=== PATIENT | female | born 1960 | race Caucasian/White ===

== ENCOUNTER 2016-12-25 02:04 | Inpatient (IN) ==
--- NOTE | 2016-12-25 02:26 | Emergency Department Note ---
Disposition Clinical Impression: Medication reaction Pneumonia Qualifiers: Pneumonia type: due to unspecified organism Laterality: bilateral Lung location : unspecified part of lung Qualified Code(s): J18.9 - Pneumonia, unspecified organism Altered mental status Qualifiers: Altered mental status type: unspecified Qualified Code(s): R41.82 - Altered mental status, unspecified Disposition: Admitted As Inpatient Condition: Good Time of Disposition: 04:28 General Adult HPI - General Chief complaint: ED Fall Stated complaint: fall Time Seen by Provider: 12/25/16 02:11 Source: patient, EMS Limitations: no limitations Nursing Notes Reviewed: Yes Vital Signs Reviewed: Yes - History of Present Illness HPI Narrative: Pt brought in by EMS. She states that she has been like she was asleep but still doing things. She states that she went from the bathroom and stood in front of her dresser to change her clothes. She then was in the floor. She states that she was having pain to the back of her head. She has a c-collar on from her recent neck surgery. She complains of into the left side of her neck. This tenderness is not midline. Pain Scale: 7 - Related Data Allergies Allergy/AdvReac Type Severity Reaction Status Date / Time codeine Allergy Itching Verified 11/09/16 13:24 Oxycodone [From Percocet] Allergy Hives Verified 12/25/16 04:33 sertraline [From Zoloft] Allergy Itching Verified 11/09/16 13:24 All systems ED: reviewed and negative except as stated. Constitutional: Denies: fever, chills ENT ED: Denies: ear pain, throat pain, congestion, dysphagia Cardiovascular: Reports: syncope (One episode today while standing in her dresser putting her night gown on.). Denies: chest pain, palpitations, edema Respiratory: Denies: cough, dyspnea, wheezes Gastrointestinal: Denies: abdominal pain, nausea, vomiting, diarrhea, hematemesis, melena, hematochezia Genitourinary: Denies: urgency, dysuria, frequency Musculoskeletal: Reports: neck pain (Left-sided). Denies: back pain Integumentary: Denies: rash, abrasion, lesions Neurological: Reports: headache, other (One day history of feeling like she is asleep but still doing things.). Denies: weakness, numbness Past Medical History - Past Medical History Attestation: Yes The following information was validated with the patient. Medical history: Reports: arthritis, asthma, COPD, hyperlipidemia, hypertension , TIA Psychiatric history: Reports: anxiety, bipolar, depression - Social History Smoking Status: Former smoker Smokeless Tobacco Status: No Alcohol use: Reports: rarely Drug use: Reports: none Physical Exam - General Limitations: no limitations General appearance: alert, in no apparent distress - Head Head exam: atraumatic, normocephalic, normal inspection - Eye Eye exam: Present: normal appearance, PERRL, EOMI. Absent: scleral icterus - ENT ENT exam: normal exam, normal oropharynx, mucous membranes moist - Neck Neck exam: Present: normal inspection, full ROM, trachea midline, other (Left- sided neck pain. Occurred after her fall. No midline tenderness.) - Chest Chest inspection: Present: normal inspection, symmetric chest wall rise. Absent : tenderness, rash - Respiratory Respiratory exam: Present: normal lung sounds bilaterally. Absent: respiratory distress - Cardiovascular Cardiovascular exam: Present: regular rate, normal rhythm, normal heart sounds - Abdominal Exam Abdominal exam: Present: soft, Non-Tender. Absent: tenderness, distention, guarding, rebound, rigidity, organomegaly - Extremities Exam Extremities exam: Present: normal inspection, full ROM, normal capillary refill. Absent: tenderness, pedal edema - Back Exam Back exam: Present: normal inspection, full ROM. Absent: tenderness, CVA tenderness (R), CVA tenderness (L) - Neurological Exam Neurological exam: Present: alert, oriented X3, other (Somewhat confused. She said her speech is slow. Appears overmedicated.). Absent: motor sensory deficit - Psychiatric Psychiatric exam: Present: normal affect, normal mood - Skin Skin exam: Present: warm, dry, intact, normal color Course Course Narrative: Female patient with the recent neck surgery who is in a c-collar since the surgery was standing on her dresser tonight and fell backwards and struck her head. She is now complaining of posterior neck pain that is off to the left side. There is no midline tenderness. She is also complaining of pain to the back of her head. Her head is normocephalic atraumatic. I do not appreciated any lacerations or abrasions. There are no hematomas. Patient states that today she has been feeling like she was doing things while she was asleep. She does appear tired while she is here. Her speech is slowed. Her pupils are reactive to light and equal. He has full range of motion of all 4 extremities. She is neurovascularly intact. We will get basic lab work and the patient's head. We will also CT patient's C-spine. We will get an EKG and a glucose. - Reevaluation(s) Reevaluation #1: Patient's states that the patient surgeon just increase her gabapentin. He reports last time she was on gabapentin that she had hallucinations. This is consistent with her saying that she feels like she is asleep but she still doing things. He also reports that the patient has been on high-dose steroids since the last time she was here. This would explain the reason for elevated white blood cell count. Time: 03:29 Reevaluation #2: Patient has pneumonia. I discussed this with her begin antibiotic treatment. She is agreeable to stay. She still appears somewhat Sedated. There may be a component of overmedication. Time: 04:25 - Consultations Consultation #1: Dr Arellano accepted Pt in stable condition Time: 04:55 Vital Signs Temperature 98.7 F 12/25/16 02:09 Pulse Rate 93 12/25/16 02:09 Respiratory Rate 20 12/25/16 02:09 Blood Pressure 140/85 12/25/16 02:09 O2 Sat by Pulse Oximetry 93 L 12/25/16 02:09 Temperature 99.6 F 12/25/16 06:43 Pulse Rate 97 12/25/16 06:43 Respiratory Rate 18 12/25/16 06:43 Blood Pressure 161/109 12/25/16 06:43 O2 Sat by Pulse Oximetry 93 L 12/25/16 06:43 Oxygen Delivery Oxygen Delivery Nasal Cannula Medical Decision Making - Medical Records Medical records reviewed: Yes I reviewed the patient's medical records. - Lab Data Lab results reviewed: Yes I reviewed the patient's lab results. Result diagrams: 12/25/16 02:51 12/25/16 02:51 Lab Results 12/25/16 12/25/16 Range/Units 02:51 02:51 WBC 27.7 H (4.3-11.1) K/mcL RBC 3.78 L (3.82-4.97) M/mcL Hgb 10.1 L (11.5-15.4) g/dL Hct 31.4 L (35.3-44.9) % MCV 83.1 (83.0-100.0) fL MCH 26.7 L (28.0-33.3) pg MCHC 32.2 (31.6-35.5) g/dL RDW 14.0 (11.5-14.5) % Plt Count 628 H (140-400) K/mcL MPV 7.7 L (9.4-12.4) fL Seg Neutrophils % 88.0 % Band Neutrophils % 4.0 (0-4) % Lymphocytes % 2.0 % Monocytes % 6.0 % Neutrophils # 25.5 H (1.6-8.9) K/mcL Lymphocytes # 0.6 (0.6-4.6) K/mcL Monocytes # 1.7 H (0.0-1.3) K/mcL Platelet Estimate Marked Increase H (Normal) Immature Plt Fraction 0.9 L (1.1-6.1) % Sodium 132 L (136-145) mEq/L Potassium 3.8 (3.5-4.5) mEq/L Chloride 99 (98-109) mEq/L Carbon Dioxide 25 (19-29) mEq/L BUN 9 (7-20) mg/dL Creatinine 0.66 (0.57-1.11) mg/dL Est GFR ( Amer) > 60 (> 60) Est GFR (Non-Af Amer) > 60 (> 60) BUN/Creatinine Ratio 14 (6-26) Glucose 110 H (70-99) mg/dL Calculated Osmolality 273 L (280-300) Calcium 8.5 L (8.6-10.8) mg/dL Total Bilirubin 0.5 (0.2-1.2) mg/dL AST 26 (5-34) Units/L ALT 39 (0-55) Units/L Alkaline Phosphatase 133 H (38-126) Units/L Serum Total Protein 6.3 (6.0-8.3) g/dL Albumin 2.3 L (3.5-5.0) g/dL Globulin 4.0 H (2.4-3.5) g/dL Albumin/Globulin Ratio 0.6 L (1.1-2.2) - Radiology Data Radiology results reviewed: Yes I reviewed the patient's radiology results. Cervical Spine CT 12/25/16 02:16 IMPRESSION: No acute abnormality of the cervical spine. Postoperative changes of attempted fusion from C3-C7, with laminectomies from C3-C6. Sagittal alignment is maintained. Bilateral upper lobe opacities, left greater than right, concerning for pneumonia. D/ / Brent Taylor MD / Brent Taylor MD Interpreting Provider: Brent Taylor MD Head CT 12/25/16 02:16 IMPRESSION: No acute intracranial abnormality. D/ / Brent Taylor MD / Brent Taylor MD Interpreting Provider: Brent Taylor MD Chest X-Ray 12/25/16 03:28 IMPRESSION: Diffuse airspace disease could represent pulmonary edema or pneumonia. D/ / Feng Hernandez MD / Feng Hernandez MD Interpreting Provider: Feng Hernandez MD - EKG Data EKG #1 EKG attestation: Yes I reviewed and interpreted this EKG. EKG results narrative: Normal sinus rhythm at a rate 88. CA interval is 108. QRS duration is 94. QT is 342. QTc is 387. No signs of acute ischemia.
[2016-12-25 02:58] LABS: Hematocrit 31.4 % (35.3-44.9); Hemoglobin 10.1 g/dL (11.5-15.4); Immature Platelets 0.9 % (1.1-6.1); Mean Corpuscular HGB Conc 32.2 g/dL (31.6-35.5); Mean Corpuscular Hemoglobin 26.7 pg (28.0-33.3); Mean Corpuscular Volume 83.1 fL (83.0-100.0); Mean Platelet Volume 7.7 fL (9.4-12.4); Platelet Count 628 K/mcL (140-400); Red Blood Count 3.78 M/mcL (3.82-4.97)
[2016-12-25 03:11] LABS: Alanine Aminotransferase 39 Units/L (0-55); Albumin 2.3 g/dL (3.5-5.0); Albumin/Globulin Ratio 0.6 (1.1-2.2); Alkaline Phosphatase 133 Units/L (38-126); Aspartate Amino Transferase 26 Units/L (5-34); BUN/Creatinine Ratio 14 (6-26); Bilirubin,Total 0.5 mg/dL (0.2-1.2); Blood Urea Nitrogen 9 mg/dL (7-20); Calcium 8.5 mg/dL (8.6-10.8); Carbon Dioxide 25 mEq/L (19-29); Chloride 99 mEq/L (98-109); Glucose 110 mg/dL (70-99); Osmolality,Calculated 273 (280-300); Potassium 3.8 mEq/L (3.5-4.5); Sodium 132 mEq/L (136-145); Total Protein 6.3 g/dL (6.0-8.3); eGFR For African Americans > 60 (> 60); eGFR For Non-African Americans > 60 (> 60)
--- NOTE | 2016-12-25 03:27 | Emergency Department Note ---
START Narrative - START START: For this encounter, I have reviewed the resident, GRILL CHEF, or PA documentation, treatment plan, and medical decision making; and I have had face to face time with this patient. 56 yo female presents after a fall. At a rehab facility after a cervical spine fusion. Unable to recall why she fell. States she was changing into her gown, fell with LOC. Reports she is fatigued throughout the day over the past 48 hours. Complains of pain to the neck and posterior head. No anticoagulation use. states that the patient has been increasingly fatigued after starting new dose of gabapentin. states that the patient has had similar symptoms the last time she took gabapentin. Patient has a leukocytosis and has a infiltrate on chest x-ray. We will treat the patient with healthcare associated antibiotics and admitted for care and evaluation.
[2016-12-25 03:43] LABS: Lymphocytes # 0.6 K/mcL (0.6-4.6); Monocytes # 1.7 K/mcL (0.0-1.3); Neutrophils # 25.5 K/mcL (1.6-8.9); Platelet Estimate Marked Increase (Normal)
[2016-12-25] MEDS ORDERED: Levofloxacin 750 MG/150 ML 750 MG/150 ML BAG IVPB ONE (04:08)
[2016-12-25] MEDS ORDERED: Vancomycin 1,250 MG in D5% in Water 250 ML IVPB ONE (04:08)
[2016-12-25] MEDS ORDERED: Piperacillin/Tazobactam 3.375 GM in D5% in Water (Mini-Bag+) 100 ML IVPB ONE (04:08)
--- NOTE | 2016-12-25 05:34 | Internal Med History&Physical ---
Date of Encounter: 12/25/16 Time of Encounter: 05:32 Internal Medicine - H&P: HPI Chief complaint: fall Admitted From: Home Plans for Post Hospital Care: Home History of present illness: Ms. Clayton is a 56 year old female who presents to the ED after sustaining a fall at home. She states she was at the bathroom about to change when she lost consciousness. She apparently fell backwards and hit her head and has pain in her neck as well. She recently had neck surgery last month at [facility] for repeat spinal fusion and currently has a c-collar on. She reports feeling sleepy all day and believes her Gabapentin is contributing to it. Past Med Surg Social Fam HX - Past Medical History Medical history: arthritis, asthma, COPD, hyperlipidemia, hypertension, TIA Psychiatric history: anxiety, bipolar, depression - Social History Smoking Status: Former smoker Smokeless Tobacco Status: No Alcohol use: rarely Drug use: none Internal Medicine - H&P: Meds Allergies codeine Allergy (Verified 11/09/16 13:24) Itching Oxycodone [From Percocet] Allergy (Verified 12/25/16 04:33) Hives sertraline [From Zoloft] Allergy (Verified 11/09/16 13:24) Itching All Systems PM: A 10-system review of systems was performed and is negative for pertinent findings except as documented above in the HPI. - Constitutional Vitals: Temp Pulse Resp BP Pulse Ox 98.7 F 92 20 122/64 92 L 12/25/16 02:09 12/25/16 04:50 12/25/16 04:50 12/25/16 04:50 12/25/16 04:50 Internal Med - H&P Results - Labs CBC & Chem 7: 12/25/16 02:51 12/25/16 02:51
[2016-12-25] MEDS ORDERED: Ondansetron 4 MG/2 ML VIAL IVP PRN (08:48)
[2016-12-25] MEDS ORDERED: Acetaminophen 325 MG TABLET PO PRN (08:48)
[2016-12-25] MEDS ORDERED: Naloxone 0.4 MG/ML INJ IVP PRN (08:48)
[2016-12-25] MEDS ORDERED: *HR* Morphine 2 MG/ML SYRINGE IVP PRN (08:48)
[2016-12-25] MEDS ORDERED: Vancomycin (wt based) 1,000 MG VIAL IVPB SCH (09:00)
[2016-12-25 10:16] LABS: Hematocrit 32.1 % (35.3-44.9); Hemoglobin 10.6 g/dL (11.5-15.4); Immature Platelets 1.2 % (1.1-6.1); Mean Corpuscular Hemoglobin 27.4 pg (28.0-33.3); Mean Corpuscular Volume 82.9 fL (83.0-100.0); Mean Platelet Volume 8.2 fL (9.4-12.4); Platelet Count 669 K/mcL (140-400); Red Blood Count 3.87 M/mcL (3.82-4.97)
[2016-12-25 10:28] LABS: Alanine Aminotransferase 46 Units/L (0-55); Albumin 2.4 g/dL (3.5-5.0); Albumin/Globulin Ratio 0.5 (1.1-2.2); Alkaline Phosphatase 152 Units/L (38-126); Aspartate Amino Transferase 33 Units/L (5-34); BUN/Creatinine Ratio 12 (6-26); Bilirubin,Direct 0.5 mg/dL (0.0-0.5); Bilirubin,Indirect 0.5 mg/dL (0.0-1.2); Blood Urea Nitrogen 8 mg/dL (7-20); Calcium 9.2 mg/dL (8.6-10.8); Carbon Dioxide 24 mEq/L (19-29); Chloride 98 mEq/L (98-109); Globulin 4.5 g/dL (2.4-3.5); Glucose 90 mg/dL (70-99); Osmolality,Calculated 274 (280-300); Potassium 4.1 mEq/L (3.5-4.5); Sodium 133 mEq/L (136-145); Total Protein 6.9 g/dL (6.0-8.3); eGFR For African Americans > 60 (> 60); eGFR For Non-African Americans > 60 (> 60)
[2016-12-25 10:30] LABS: INR 1.3; Prothrombin Time 14.5 Seconds (9.4-12.1)
[2016-12-25 10:33] LABS: Activated Partial Thrombo Time 26.1 Seconds (26.0-36.0)
[2016-12-25 10:34] LABS: Eosinophils # 0.7 K/mcL (0.0-0.6); Lymphocytes # 1.3 K/mcL (0.6-4.6); Monocytes # 0.7 K/mcL (0.0-1.3); Neutrophils # 30.5 K/mcL (1.6-8.9); Polychromasia 1+ (Not Present)
[2016-12-25 10:35] LABS: Toxic Granulation Present (Not Present)
[2016-12-25] MEDS: 0.9 % Sodium Chloride 1,000 ML IVC SCH (11:39)
[2016-12-25] MEDS: Levofloxacin 750 MG/150 ML 750 MG/150 ML BAG IVPB SCH (11:39)
[2016-12-25] MEDS ORDERED: diazePAM 5 MG TABLET PO PRN (14:01)
[2016-12-25] MEDS ORDERED: Benzonatate 100 MG CAPSULE PO PRN (14:01)
[2016-12-25] MEDS ORDERED: MOM Conc 10 ML UD.LIQ PO PRN (14:01)
[2016-12-25] MEDS: Loratadine 10 MG TABLET PO SCH (15:52)
[2016-12-25] MEDS: BuPROPion XL (24 HR) 150 MG TABLET PO SCH (15:52)
[2016-12-25] MEDS: amLODIPine 5 MG TABLET PO SCH (15:52)
[2016-12-25] MEDS: *HR* FentaNYL PATCH 25 MCG PATCH TD SCH (15:52)
[2016-12-25] MEDS: Vancomycin 1,250 MG in D5% in Water 250 ML IVPB SCH (15:53)
[2016-12-25] MEDS: Piperacillin/Tazobactam 3.375 GM in D5% in Water (Mini-Bag+) 100 ML IVPB SCH (15:53)
[2016-12-25] MEDS: Nystatin SUSP 5 ML UD.LIQ PO SCH ×2 (17:32→21:01)
[2016-12-25] MEDS: *HR* HYDROcodone/Acet 7.5/325 mg TABLET PO PRN (17:35)
--- NOTE | 2016-12-25 18:05 | Electrocardiograph Report ---
[place] [id number] Test Date: 2016-12-25 Pat Name: Charity Clayton Department: 103 Room: [facility] Gender: F [employer]: : [id number] Requested By: Genny Jaramillo Order Number: [id number] Reading MD: Caridad Moody Measurements Intervals [place] Rate: 88 P: 54 WI: 108 QRS: 40 QRSD: 94 T: 67 QT: 342 QTc: 387 Interpretive Statements SINUS RHYTHM WITH SHORT WI INTERVAL Electronically Signed On 12-25-2016 18:04:19 EST by Caridad Moody
[2016-12-25] MEDS: tiZANidine 4 MG TABLET PO SCH (21:00)
[2016-12-25] MEDS: Sennosides/Docusate Sodium TABLET PO SCH (21:01)
[2016-12-25] MEDS: Gabapentin 300 MG CAPSULE PO SCH (21:01)
--- NOTE | 2016-12-25 21:42 | Internal Med History&Physical ---
Date of Encounter: 12/25/16 Time of Encounter: 10:00 Assessment and Plan (1) Sepsis due to pneumonia Current visit: Yes Status: Acute We will obtain blood cultures, urine cultures and sputum culture. Will treat patient with IV fluids, broad-spectrum IV antibiotics. Obtain repeat lactic acid. (2) Essential hypertension Current visit: Yes Status: Acute Continue oral antihypertensive medication regimen. (3) COPD (chronic obstructive pulmonary disease) Current visit: Yes Status: Acute We will provide inhaled bronchodilators and oxygen by nasal cannula. Qualifiers: COPD type: emphysema Emphysema type: unspecified Qualified Code(s): J43.9 - Emphysema, unspecified (4) DVT prophylaxis Current visit: Yes Status: Acute Encourage early ambulation. The patient is mobile and does not require pharmacological prophylaxis. (5) Pneumonia Current visit: Yes Status: Acute We will follow-up blood cultures, obtain sputum culture. We will treat her with Zosyn and vancomycin and Levaquin. Narrow antibiotic therapy according to cultures. We will provide supplemental oxygen and inhaled bronchodilators. Qualifiers: Pneumonia type: due to unspecified organism Laterality: bilateral Lung location: unspecified part of lung Qualified Code(s): J18.9 - Pneumonia, unspecified organism Internal Medicine - H&P: HPI Chief complaint: Cough Admitted From: Emergency Dept Plans for Post Hospital Care: Home History of present illness: Ms. Clayton is a 56 year old female with past medical history significant for hypertension, CVA, chronic pain, also represent a tortuous and COPD who had recent C-spine surgery done at [facility] and was discharged to [facility] and presented to the hospital with cough. She started developing cough for green sputum production for the last 3 days. This was associated with shortness of breath and chills for the last 2 nights. Symptoms improved with administration of breathing treatments and oxygen. She was evaluated in the emergency department and a CT of the head was negative CT of the spine showed no acute findings. Chest x-ray showed diffuse airway disease concerning for pneumonia. She was referred for admission and further care. Past medical history as above Past surgical history hysterectomy, recent C-spine surgery, bladder tack and bilateral knee arthroscopy. Social history patient is a former score smoker, quit 14 years ago, denies alcohol and drug use Family history patient's father suffered with CVA at age 52. Past Med Surg Social Fam HX - Past Medical History Medical history: arthritis, asthma, COPD, hyperlipidemia, hypertension, TIA Psychiatric history: anxiety, bipolar, depression - Past Surgical History Surgical History: hysterectomy - Social History Smoking Status: Former smoker Smokeless Tobacco Status: No Alcohol use: rarely Drug use: none - Family History Father History Unknown: Yes Adopted: [place]: Frederci Fry Age: 55 Family Member Ethnicity: Non- Living Status: Age at : 55 Hx Family Cardiac Disorders: Yes Hx Family Respiratory Disorders: No Hx Family Cancer: Yes Hx Family GI Disorders: No Hx Family Genitourinary Disorders: No Hx Family Endocrine Disorder: No Hx Family Musculoskeletal Disorders: No Hx Family Neuromuscular Disorders: No Hx Family Neurologic Disorders: No Hx Family HEENT Disorders: No Hx Family Autoimmune Disorders: No Hx Family Reproductive Disorders: No Hx Family Psychosocial Disorders: No Hx Family Medical Disorders: No Internal Medicine - H&P: Meds Albuterol Sulfate [Proventil Hfa] 2 puff IH Q6H PRN 12/25/16 [History] Amlodipine [Norvasc] 10 mg PO DAILY 12/25/16 [History] Benzonatate [Tessalon] 100 mg PO TID PRN 12/25/16 [History] Bisacodyl [Dulcolax] 10 mg RC DAILY 12/25/16 [History] Bupropion HCl [Wellbutrin Xl] 300 mg PO DAILY 12/25/16 [History] Calcium Carbonate [Calcium] 500 mg PO DAILY 12/25/16 [History] Diazepam [Valium] 5 mg PO Q6H PRN 12/25/16 [History] FLUoxetine HCl [Fluoxetine HCl] 80 mg PO DAILY 12/25/16 [History] FentaNYL PATCH [Duragesic] 25 mcg TD Q48H 12/25/16 [History] Gabapentin [Neurontin] 300 mg PO BID 12/25/16 [History] HYDROcodone/Acet 7.5/325 mg [[place] 7.5-325 mg] 1 - 2 tab PO HS PRN 12/25/16 [ History] Lactulose 30 ml PO BID PRN 12/25/16 [History] Loratadine [Claritin] 10 mg PO DAILY 12/25/16 [History] Magnesium Hydroxide [Milk of Magnesia] 30 ml PO DAILY PRN 12/25/16 [History] Omeprazole 20 mg PO DAILY 12/25/16 [History] Promethazine [Phenergan] 12.5 mg RC Q6HR PRN 12/25/16 [History] Ranitidine HCl [Acid Route Sales Person] 150 mg PO DAILY 12/25/16 [History] Sennosides/Docusate Sodium [Senna-Docusate Sodium Tablet] 1 tab PO BID 12/25/16 [History] Spironolactone [Aldactone] 100 mg PO DAILY 12/25/16 [History] Tizanidine HCl [Zanaflex] 4 mg PO QAM 12/25/16 [History] Tizanidine HCl [Zanaflex] 12 mg PO HS 12/25/16 [History] Allergies codeine Allergy (Verified 11/09/16 13:24) Itching Oxycodone [From Percocet] Allergy (Verified 12/25/16 04:33) Hives sertraline [From Zoloft] Allergy (Verified 11/09/16 13:24) Itching All Systems PM: A 10-system review of systems was performed and is negative for pertinent findings except as documented above in the HPI. - Constitutional Vitals: Temp Pulse Resp BP Pulse Ox 98.4 F 85 18 123/80 91 L 12/25/16 20:56 12/25/16 20:56 12/25/16 20:56 12/25/16 20:56 12/25/16 20:56 General appearance: Present: A&O X 3 - Eye Eye exam: Present: PERRL, conjuntiva pink, sclera anicteric Pupils: Present: PERRL - Neck Additional comments: C collar is in place. A well healing surgical scar noted on cervical area. - Respiratory Respiratory exam: Present: CTAB. Absent: accessory muscle use, rales, rhonchi, wheezes - Cardiovascular Cardiovascular exam: Present: RRR, +S1, +S2. Absent: diastolic murmur, gallop, rubs, systolic murmur - GI/Abdominal GI/Abdominal exam: Present: normal bowel sounds, soft, no peritoneal signs. Absent: distended, tenderness - Neurological Exam Neurological exam: Present: CN II-XII intact, oriented X3, no focal deficits. Absent: pronater drift, facial droop, speech deficit - Skin Skin exam: Present: dry, intact Internal Med - H&P Results - Labs CBC & Chem 7: 12/26/16 05:23 12/26/16 05:23 Labs: Short CBC 12/25/16 Range/Units 10:01 WBC 33.1 H* (4.3-11.1) K/mcL Hgb 10.6 L (11.5-15.4) g/dL Hct 32.1 L (35.3-44.9) % Plt Count 669 H (140-400) K/mcL Neutrophils # 30.5 H (1.6-8.9) K/mcL BMP 12/25/16 10:01 Sodium 133 L Potassium 4.1 Chloride 98 Carbon Dioxide 24 BUN 8 Creatinine 0.69 Glucose 90 Calcium 9.2 Cardiac Enzymes 12/25/16 12/25/16 Range/Units 10:01 15:00 Troponin I 0.00 0.00 (0-0.03) ng/mL Liver Function 12/25/16 Range/Units 10:01 Total Bilirubin 1.0 D (0.2-1.2) mg/dL Direct Bilirubin 0.5 (0.0-0.5) mg/dL AST 33 (5-34) Units/L ALT 46 (0-55) Units/L Alkaline Phosphatase 152 H (38-126) Units/L Albumin 2.4 L (3.5-5.0) g/dL - EKG Data -: EKG Interpreted by Myself EKG shows normal: sinus rhythm (69 bpm), QRS complexes, ST-T waves - VTE Documentation of Mechanical Device: Intermittent pneumatic compression device
[2016-12-26] MEDS: Piperacillin/Tazobactam 3.375 GM in D5% in Water (Mini-Bag+) 100 ML IVPB SCH ×2 (00:26→09:50)
[2016-12-26] MEDS: Vancomycin 1,250 MG in D5% in Water 250 ML IVPB SCH (04:55)
[2016-12-26 05:37] LABS: Basophils % 0.1 %; Eosinophils # 0.2 K/mcL (0.0-0.6); Eosinophils % 0.7 %; Hematocrit 30.4 % (35.3-44.9); Hemoglobin 9.7 g/dL (11.5-15.4); Lymphocytes # 1.9 K/mcL (0.6-4.6); Lymphocytes % 8.5 %; Mean Corpuscular HGB Conc 31.9 g/dL (31.6-35.5); Mean Corpuscular Hemoglobin 26.7 pg (28.0-33.3); Mean Corpuscular Volume 83.7 fL (83.0-100.0); Mean Platelet Volume 7.7 fL (9.4-12.4); Monocytes # 2.1 K/mcL (0.0-1.3); Monocytes % 9.6 %; Neutrophils # 17.3 K/mcL (1.6-8.9); Platelet Count 509 K/mcL (140-400); Red Blood Count 3.63 M/mcL (3.82-4.97); Segmented Neutrophils % 78.1 %
[2016-12-26 05:50] LABS: BUN/Creatinine Ratio 13 (6-26); Blood Urea Nitrogen 9 mg/dL (7-20); Calcium 8.5 mg/dL (8.6-10.8); Carbon Dioxide 27 mEq/L (19-29); Chloride 99 mEq/L (98-109); Glucose 106 mg/dL (70-99); Magnesium 1.2 mg/dL (1.6-2.6); Osmolality,Calculated 277 (280-300); Potassium 3.9 mEq/L (3.5-4.5); Sodium 134 mEq/L (136-145); eGFR For African Americans > 60 (> 60); eGFR For Non-African Americans > 60 (> 60)
[2016-12-26] MEDS: Bisacodyl 10 MG RECTAL SUPPOSITORY RC SCH (08:26)
[2016-12-26] MEDS: amLODIPine 5 MG TABLET PO SCH (08:29)
[2016-12-26] MEDS: Famotidine 20 MG TABLET PO SCH (08:29)
[2016-12-26] MEDS: Loratadine 10 MG TABLET PO SCH (08:29)
[2016-12-26] MEDS: FLUoxetine 20 MG CAPSULE PO SCH (08:30)
[2016-12-26] MEDS: Gabapentin 300 MG CAPSULE PO SCH (08:31)
[2016-12-26] MEDS: tiZANidine 4 MG TABLET PO SCH ×2 (08:31→20:54)
[2016-12-26] MEDS: BuPROPion XL (24 HR) 150 MG TABLET PO SCH (08:31)
[2016-12-26] MEDS: Sennosides/Docusate Sodium TABLET PO SCH ×2 (08:31→20:53)
[2016-12-26] MEDS: Nystatin SUSP 5 ML UD.LIQ PO SCH ×2 (08:31→12:52)
[2016-12-26] MEDS: *HR* HYDROcodone/Acet 7.5/325 mg TABLET PO PRN ×2 (08:45→19:43)
--- NOTE | 2016-12-26 08:52 | Internal Med Progress Note ---
Date of Encounter: 12/26/16 Time of Encounter: 08:47 - Assessment and plan (1) Sepsis due to pneumonia Current Visit: Yes Status: Acute Assessment and plan: On presentation patient tachypnic, white blood cell count was 33, chest x-ray showed evidence of pneumonia. Patient hadC-spine on December 07 at [facility]. She qualifies for HCAP Pneumonia bacterial in origin. Blood cultures and sputum cultures ordered and pending Started on empiric therapy: Vancomycin, Zosyn, Levaquin. Patient is on 2 L oxygen satting at 93%. Her shortness of breath is improved. White blood cell count decreased to 22. Awaiting culture sensitivities. CBC and BMP in the morning. Continue cardiac diet. Soft diet. (2) COPD (chronic obstructive pulmonary disease) Current Visit: Yes Status: Acute Assessment and plan: Patient has a history of COPD. Continue oxygen bronchodilators OMFS in and benzonatate for cough control. Qualifiers: COPD type: emphysema Emphysema type: unspecified Qualified Code(s): J43.9 - Emphysema, unspecified (3) S/P spinal surgery Current Visit: Yes Status: Acute Assessment and plan: Patient status post C-spine surgery at [facility] on December 07. She wears a neck collar. Neurological exam is nonfocal and nonlateralizing except for decrease in pinprick and touch on bilateral hands. Pain control with [place] and morphine. We will continue to monitor. PT/OT (4) DVT prophylaxis Current Visit: Yes Status: Acute Assessment and plan: EPCDS (5) Essential hypertension Current Visit: Yes Status: Acute Assessment and plan: Controlled. Continue home regimen. - Subjective Interval history: 56-year-old female with a history of asthma, COPD, hyperlipidemia, hypertension is admitted for sepsis secondary to pneumonia. This morning patient has persistent unproductive coughing with pleuritic chest pain. She also complains of continued. Neck pain from underlying C-spine surgery recently. She complains of numbness and tingling in her hands. She complains of change in her voice and difficulty swallowing which was present before the surgery as well. She also has wheezing. She denies chest pain, abdominal pain, nausea, vomiting, difficulty urinating. - Constitutional Vitals: Temp Pulse Resp BP Pulse Ox 99.4 F 90 16 112/74 93 L 12/26/16 07:28 12/26/16 07:28 12/26/16 07:28 12/26/16 07:28 12/26/16 07:28 General appearance: Present: A&O X 3, answers questions appropriately - Neck Neck exam general surgery: Absent: full ROM (Due to neck collar) Additional comments: Recent C-spine surgery. Patient has neck collar. - Respiratory Respiratory exam: Present: decreased breath sounds, wheezes (Diffuse). Absent: rales, rhonchi - Cardiovascular Cardiovascular exam: Present: RRR, +S1, +S2. Absent: diastolic murmur, gallop, rubs, systolic murmur - GI/Abdominal GI/Abdominal exam: Present: normal bowel sounds, soft, no peritoneal signs. Absent: distended, tenderness - Extremities Exam Extremities exam: Present: warm, radial pulses palpable and symetrical. Absent : calf tenderness, cyanotic, pedal edema - Neurological Exam Neurological exam: Present: CN II-XII intact, motor sensory deficit (Decreased sensation to light touch and pinprick in bilateral hands), oriented X3, no focal deficits, strengths equal and symetr throughout. Absent: pronater drift, facial droop, speech deficit Internal Medicine: Result - Labs CBC & Chem 7: 12/26/16 05:23 12/26/16 05:23 Labs: Short CBC 12/25/16 12/26/16 Range/Units 10:01 05:23 WBC 33.1 H* 22.1 H (4.3-11.1) K/mcL Hgb 10.6 L 9.7 L (11.5-15.4) g/dL Hct 32.1 L 30.4 L (35.3-44.9) % Plt Count 669 H 509 H (140-400) K/mcL Neutrophils # 30.5 H 17.3 H (1.6-8.9) K/mcL BMP 12/25/16 12/26/16 10:01 05:23 Sodium 133 L 134 L Potassium 4.1 3.9 Chloride 98 99 Carbon Dioxide 24 27 BUN 8 9 Creatinine 0.69 0.67 Glucose 90 106 H Calcium 9.2 8.5 L Cardiac Enzymes 12/25/16 12/25/16 12/25/16 Range/Units 10:01 15:00 21:38 Troponin I 0.00 0.00 0.00 (0-0.03) ng/mL Liver Function 12/25/16 Range/Units 10:01 Total Bilirubin 1.0 D (0.2-1.2) mg/dL Direct Bilirubin 0.5 (0.0-0.5) mg/dL AST 33 (5-34) Units/L ALT 46 (0-55) Units/L Alkaline Phosphatase 152 H (38-126) Units/L Albumin 2.4 L (3.5-5.0) g/dL - ABG Interpretation ABG results: PT/INR, D-dimer PT 14.5 Seconds (9.4-12.1) H 12/25/16 10:01 - VTE Documentation of Mechanical Device: Intermittent pneumatic compression device Consult Discharge Plan - Plan Referrals: oSn Knowles MD [Primary Care Provider] -
[2016-12-26] MEDS ORDERED: Aminoglycoside Consult 1 EACH MC ONE (08:57)
[2016-12-26] MEDS: Gabapentin 100 MG CAPSULE PO SCH ×3 (09:46→19:25)
[2016-12-26] MEDS: Levofloxacin 750 MG/150 ML 750 MG/150 ML BAG IVPB SCH (09:50)
[2016-12-26] MEDS: Ipratropium/Albuterol Neb 3 ML IH SCH ×3 (10:30→22:40)
[2016-12-26] MEDS: 0.9 % Sodium Chloride 1,000 ML IVC SCH ×3 (12:52→21:24)
[2016-12-26] MEDS: Fluconazole 100 MG TABLET PO SCH (15:31)
[2016-12-26] MEDS ORDERED: Magnesium Sulfate 2 GM in D5% in Water 100 ML IVPB ONE (20:38)
[2016-12-27] MEDS: Ipratropium/Albuterol Neb 3 ML IH SCH ×4 (04:24→22:50)
[2016-12-27 06:19] LABS: Basophils % 0.1 %; Eosinophils # 0.2 K/mcL (0.0-0.6); Hemoglobin 8.5 g/dL (11.5-15.4); Immature Granulocytes % 2.8 % (0-4); Lymphocytes # 1.7 K/mcL (0.6-4.6); Lymphocytes % 8.7 %; Mean Corpuscular HGB Conc 31.5 g/dL (31.6-35.5); Mean Corpuscular Hemoglobin 26.7 pg (28.0-33.3); Mean Corpuscular Volume 84.9 fL (83.0-100.0); Monocytes # 2.1 K/mcL (0.0-1.3); Monocytes % 10.4 %; Neutrophils # 15.1 K/mcL (1.6-8.9); Platelet Count 466 K/mcL (140-400); Red Blood Count 3.18 M/mcL (3.82-4.97); Red Cell Distribution Width 14.2 % (11.5-14.5)
[2016-12-27 06:35] LABS: BUN/Creatinine Ratio 10 (6-26); Blood Urea Nitrogen 10 mg/dL (7-20); Calcium 8.3 mg/dL (8.6-10.8); Carbon Dioxide 26 mEq/L (19-29); Chloride 101 mEq/L (98-109); Glucose 103 mg/dL (70-99); Osmolality,Calculated 277 (280-300); Sodium 134 mEq/L (136-145); eGFR For African Americans > 60 (> 60); eGFR For Non-African Americans 57 (> 60)
[2016-12-27] MEDS: Fluconazole 100 MG TABLET PO SCH (08:41)
[2016-12-27] MEDS: Famotidine 20 MG TABLET PO SCH (08:43)
[2016-12-27] MEDS: tiZANidine 4 MG TABLET PO SCH ×2 (08:43→21:19)
[2016-12-27] MEDS: Gabapentin 100 MG CAPSULE PO SCH ×2 (08:43→14:47)
[2016-12-27] MEDS: FLUoxetine 20 MG CAPSULE PO SCH (08:43)
[2016-12-27] MEDS: amLODIPine 5 MG TABLET PO SCH (08:44)
[2016-12-27] MEDS: *HR* HYDROcodone/Acet 7.5/325 mg TABLET PO PRN ×2 (08:44→20:10)
[2016-12-27] MEDS: Loratadine 10 MG TABLET PO SCH (08:45)
[2016-12-27] MEDS: Sennosides/Docusate Sodium TABLET PO SCH ×2 (08:45→21:20)
[2016-12-27] MEDS: Levofloxacin 750 MG/150 ML 750 MG/150 ML BAG IVPB SCH (08:45)
[2016-12-27] MEDS: BuPROPion XL (24 HR) 150 MG TABLET PO SCH (08:46)
[2016-12-27] MEDS: Bisacodyl 10 MG RECTAL SUPPOSITORY RC SCH (08:48)
[2016-12-27] MEDS ORDERED: Albuterol 2.5 MG/3 ML NEBULIZER IH PRN (09:33)
[2016-12-27] MEDS: Benzonatate 100 MG CAPSULE PO PRN (10:30)
[2016-12-27] MEDS: methylPREDNISolone 125 MG/2 ML VIAL IVP SCH ×2 (10:32→16:35)
[2016-12-27] MEDS: 0.9 % Sodium Chloride 1,000 ML IVC SCH (12:34)
[2016-12-27] MEDS: *HR* FentaNYL PATCH 25 MCG PATCH TD SCH (14:47)
[2016-12-27] MEDS: Piperacillin/Tazobactam 3.375 GM in D5% in Water (Mini-Bag+) 100 ML IVPB SCH (16:36)
[2016-12-27] MEDS ORDERED: *HR* FentaNYL PATCH 25 MCG PATCH TD SCH (19:18)
--- NOTE | 2016-12-27 19:34 | Internal Med Progress Note ---
Date of Encounter: 12/27/16 Time of Encounter: 09:30 - Subjective Interval history: 56-year-old female with a history of asthma, COPD, hyperlipidemia, hypertension is admitted with sepsis with foci pneumonia. She continues to reports a cough with plueritic chest pain. She has a history of asthma. Cough This morning patient has persistent unproductive coughing with pleuritic chest pain. She continues to wear a c- collar after cervical fusion. She is report Robitussin with Guanifascein did not help her cough. She has allergy to codiene. RN reports borderline hypoxia. 85-91%. She wears nail thai. In distress, not ill but or toxic looking. Wearing a [place]aim[place] J collar Not pale, anicteric, afebrile, acyanotic. Moist mucosa, Chest : mild scattered wheezing Heart: RRR, HS1/2, no m/r/g. Abdomen: distended, soft, non-tender, no masses, : No flank tenderness, no CVA tenderness, no suprapubic tenderness. PLANT MAINTENANCE ENGINEER: AAO x 3, Skin: no active skin lesions Extremities: no pedal edema, normal pedal pulses - Assessment and plan (1) Sepsis due to pneumonia On presentation patient tachypnic, white blood cell count was 33, chest x-ray showed evidence of pneumonia. Patient hadC-spine on December 07 at [facility]. Pneumonia may be a result of microaspiration due to wearing collar On Levaquin/Zosyn and Fluconazole (sputum culture reports yeast) Blood culture: no bacterial growth. WBC is trending down. (2) COPD (chronic obstructive pulmonary disease) Patient has a history of COPD, she also reported history of asthma Continue oxygen bronchodilators OMFS in and benzonatate for cough control. Start solumedrol ib q8h (3) S/P spinal surgery Patient status post C-spine surgery at [facility] on December 07. She wears a neck collar. Neurological exam is nonfocal and nonlateralizing except for decrease in pinprick and touch on bilateral hands. Pain control with [place] and morphine. We will continue to monitor. PT/OT (4) DVT prophylaxis EPCDS (5) Essential hypertension Controlled. Continue home regimen. Cough: I suspect microaspiration and post-nasal drip as etiology of cough. This is not helped the [place] J collar. Start Benzonatate. Continue robitussin/guanefascin Start IV solumedrol 60 mg Q8H Continue Loratidine 10mg po QD Move pulse ox sensor to forehead as she has nail thai. Obtain CXR today. - Constitutional Vitals: Temp Pulse Resp BP Pulse Ox 98.5 F 87 18 93/48 93 L 12/27/16 14:58 12/27/16 14:58 12/27/16 15:57 12/27/16 15:57 12/27/16 15:57 General appearance: Present: A&O X 3, answers questions appropriately Internal Medicine: Result - Labs CBC & Chem 7: 12/27/16 05:37 12/27/16 05:37 Labs: Short CBC 12/27/16 Range/Units 05:37 WBC 19.6 H (4.3-11.1) K/mcL Hgb 8.5 L (11.5-15.4) g/dL Hct 27.0 L (35.3-44.9) % Plt Count 466 H (140-400) K/mcL Neutrophils # 15.1 H (1.6-8.9) K/mcL BMP 12/27/16 05:37 Sodium 134 L Potassium 4.0 Chloride 101 Carbon Dioxide 26 BUN 10 Creatinine 1.00 Glucose 103 H Calcium 8.3 L - ABG Interpretation ABG results: PT/INR, D-dimer PT 14.5 Seconds (9.4-12.1) H 12/25/16 10:01 - VTE Documentation of Mechanical Device: Intermittent pneumatic compression device Consult Discharge Plan - Plan Referrals: Son Knowles MD [Primary Care Provider] -
[2016-12-27] MEDS ORDERED: Gabapentin 100 MG CAPSULE PO SCH (21:00)
[2016-12-27] MEDS ORDERED: *HR* FentaNYL PATCH 50 MCG PATCH TD SCH (21:15)
[2016-12-28] MEDS: methylPREDNISolone 125 MG/2 ML VIAL IVP SCH ×3 (00:07→15:00)
[2016-12-28] MEDS: Piperacillin/Tazobactam 3.375 GM in D5% in Water (Mini-Bag+) 100 ML IVPB SCH ×2 (00:08→08:22)
[2016-12-28] MEDS: Benzonatate 100 MG CAPSULE PO PRN (01:06)
[2016-12-28] MEDS: Ipratropium/Albuterol Neb 3 ML IH SCH ×3 (04:28→16:15)
[2016-12-28] MEDS: Sennosides/Docusate Sodium TABLET PO SCH (08:16)
[2016-12-28] MEDS: Famotidine 20 MG TABLET PO SCH (08:17)
[2016-12-28] MEDS: Loratadine 10 MG TABLET PO SCH (08:18)
[2016-12-28] MEDS: Fluconazole 100 MG TABLET PO SCH (08:18)
[2016-12-28] MEDS: FLUoxetine 20 MG CAPSULE PO SCH (08:19)
[2016-12-28] MEDS: amLODIPine 5 MG TABLET PO SCH (08:19)
[2016-12-28] MEDS: *HR* HYDROcodone/Acet 7.5/325 mg TABLET PO PRN (08:19)
[2016-12-28] MEDS: BuPROPion XL (24 HR) 150 MG TABLET PO SCH (08:19)
[2016-12-28] MEDS: Bisacodyl 10 MG RECTAL SUPPOSITORY RC SCH ×2 (08:20→11:35)
[2016-12-28] MEDS: 0.9 % Sodium Chloride 1,000 ML IVC SCH (08:20)
[2016-12-28] MEDS: tiZANidine 4 MG TABLET PO SCH (08:22)
[2016-12-28] MEDS ORDERED: levoFLOXacin 750 MG TABLET PO SCH (12:26)
[2016-12-28 12:47] LABS: Basophils % 0.1 %; Hematocrit 26.5 % (35.3-44.9); Hemoglobin 8.5 g/dL (11.5-15.4); Immature Granulocytes % 2.5 % (0-4); Immature Platelets 0.8 % (1.1-6.1); Lymphocytes # 0.7 K/mcL (0.6-4.6); Lymphocytes % 3.7 %; Mean Corpuscular HGB Conc 32.1 g/dL (31.6-35.5); Mean Corpuscular Hemoglobin 26.9 pg (28.0-33.3); Mean Corpuscular Volume 83.9 fL (83.0-100.0); Mean Platelet Volume 7.8 fL (9.4-12.4); Monocytes # 0.8 K/mcL (0.0-1.3); Neutrophils # 16.9 K/mcL (1.6-8.9); Platelet Count 613 K/mcL (140-400); Red Blood Count 3.16 M/mcL (3.82-4.97); Red Cell Distribution Width 14.2 % (11.5-14.5); Segmented Neutrophils % 89.7 %
--- NOTE | 2016-12-28 14:43 | Discharge Summary ---
Date of Encounter: 12/28/16 Time of Encounter: 11:20 - Discharge Medications Prescriptions: GuaiFENesin/Dextromethorphan [Robitussin/Dm] 5 ml PO Q4HR PRN #200 udc PRN Reason: Cough Amoxicillin/Clavulanate [Augmentin] 500 mg PO TIDWM 7 Days FentaNYL PATCH [Duragesic] 25 mcg TD Q48H #10 patch.td72 PredniSONE 40 mg PO DAILY 7 Days Saccharomyces Boulardii [Probiotic] 250 mg PO BID 30 Days Home Medications: Albuterol Sulfate [Proventil Hfa] 2 puff IH Q6H PRN 12/25/16 [History] Amlodipine [Norvasc] 10 mg PO DAILY 12/25/16 [History] Benzonatate [Tessalon] 100 mg PO TID PRN 12/25/16 [History] Bisacodyl [Dulcolax] 10 mg RC DAILY 12/25/16 [History] Bupropion HCl [Wellbutrin Xl] 300 mg PO DAILY 12/25/16 [History] Calcium Carbonate [Calcium] 500 mg PO DAILY 12/25/16 [History] Diazepam [Valium] 5 mg PO Q6H PRN 12/25/16 [History] FLUoxetine HCl [Fluoxetine HCl] 80 mg PO DAILY 12/25/16 [History] Gabapentin [Neurontin] 300 mg PO BID 12/25/16 [History] HYDROcodone/Acet 7.5/325 mg [[place] 7.5-325 mg] 1 - 2 tab PO HS PRN 12/25/16 [ History] Lactulose 30 ml PO BID PRN 12/25/16 [History] Loratadine [Claritin] 10 mg PO DAILY 12/25/16 [History] Magnesium Hydroxide [Milk of Magnesia] 30 ml PO DAILY PRN 12/25/16 [History] Omeprazole 20 mg PO DAILY 12/25/16 [History] Promethazine [Phenergan] 12.5 mg RC Q6HR PRN 12/25/16 [History] Ranitidine HCl [Acid Wearing Apparel Presser] 150 mg PO DAILY 12/25/16 [History] Sennosides/Docusate Sodium [Senna-Docusate Sodium Tablet] 1 tab PO BID 12/25/16 [History] Spironolactone [Aldactone] 100 mg PO DAILY 12/25/16 [History] Tizanidine HCl [Zanaflex] 4 mg PO QAM 12/25/16 [History] Tizanidine HCl [Zanaflex] 12 mg PO HS 12/25/16 [History] Albuterol Neb [Proventil Neb] 2.5 mg IH Q4H PRN #0 inhsol 12/28/16 [Rx] Amoxicillin/Clavulanate [Augmentin] 500 mg PO TIDWM 7 Days 12/28/16 [Rx] FentaNYL PATCH [Duragesic] 25 mcg TD Q48H #10 patch.td72 12/28/16 [Rx] Fluconazole [Diflucan] 200 mg PO DAILY 20 Days 12/28/16 [Rx] GuaiFENesin/Dextromethorphan [Robitussin/Dm] 5 ml PO Q4HR PRN #200 udc 12/28/16 [Rx] Ipratropium/Albuterol Neb [Duoneb] 3 ml IH [id number] 7 Days 12/28/16 [Rx] Levofloxacin 750 mg PO DAILY 10 Days 12/28/16 [Rx] PredniSONE 40 mg PO DAILY 7 Days 12/28/16 [Rx] Saccharomyces Boulardii [Probiotic] 250 mg PO BID 30 Days 12/28/16 [Rx] Allergies/Adverse Reactions: Allergies codeine Allergy (Verified 11/09/16 13:24) Itching Oxycodone [From Percocet] Allergy (Verified 12/25/16 04:33) Hives sertraline [From Zoloft] Allergy (Verified 11/09/16 13:24) Itching Date of admission: 12/25/16 08:48 Primary care physician: Son Knowles MD Discharging clinician: Oswaldo Zamora Anticipated date of discharge: 12/28/16 - Patient Status Disposition: Transfer SNF Condition: Good Overall status at discharge: patient is progressing back to baseline - Discharge Instructions Follow Up With: Son Knowles MD [Primary Care Provider] - - Diet and Activity Activity: increase activity as tolerated, other (Pureed diet while wearing collar, aspiration precautions, bend chin forwars with meals.) Diet: low salt diet Hospital course: Ms. Clayton is a 56 year old female - Time Spent with Patient Total time spent providing and/or coordinating discharge services: - Constitutional Vitals: Temp Pulse Resp BP Pulse Ox 97.2 F L 82 20 95/58 93 L 12/28/16 11:10 12/28/16 11:10 12/28/16 11:10 12/28/16 11:10 12/28/16 11:10 General appearance: Present: A&O X 3, answers questions appropriately - VTE Documentation of Mechanical Device: Intermittent pneumatic compression device
--- NOTE | 2016-12-28 14:45 | Physician Discharge Referral ---
ExtendedCare Referral Info Transfer To: ECF Provider in Charge after Transfer: PCP Institutional Level of Care: Skilled - Diagnosis (1) Aspiration pneumonia Priority: Primary Status: Acute (2) COPD (chronic obstructive pulmonary disease) Priority: Secondary Status: Chronic (3) Essential hypertension Priority: Secondary Status: Chronic (4) S/P spinal surgery Priority: Secondary Status: Chronic (5) Sepsis due to pneumonia Priority: Primary Status: Acute - Transfer Medications Prescriptions: GuaiFENesin/Dextromethorphan [Robitussin/Dm] 5 ml PO Q4HR PRN #200 udc PRN Reason: Cough Amoxicillin/Clavulanate [Augmentin] 500 mg PO TIDWM 7 Days FentaNYL PATCH [Duragesic] 25 mcg TD Q48H #10 patch.td72 PredniSONE 40 mg PO DAILY 7 Days Saccharomyces Boulardii [Probiotic] 250 mg PO BID 30 Days Home Medications: Albuterol Sulfate [Proventil Hfa] 2 puff IH Q6H PRN 12/25/16 [History] Amlodipine [Norvasc] 10 mg PO DAILY 12/25/16 [History] Benzonatate [Tessalon] 100 mg PO TID PRN 12/25/16 [History] Bisacodyl [Dulcolax] 10 mg RC DAILY 12/25/16 [History] Bupropion HCl [Wellbutrin Xl] 300 mg PO DAILY 12/25/16 [History] Calcium Carbonate [Calcium] 500 mg PO DAILY 12/25/16 [History] Diazepam [Valium] 5 mg PO Q6H PRN 12/25/16 [History] FLUoxetine HCl [Fluoxetine HCl] 80 mg PO DAILY 12/25/16 [History] Gabapentin [Neurontin] 300 mg PO BID 12/25/16 [History] HYDROcodone/Acet 7.5/325 mg [[place] 7.5-325 mg] 1 - 2 tab PO HS PRN 12/25/16 [ History] Lactulose 30 ml PO BID PRN 12/25/16 [History] Loratadine [Claritin] 10 mg PO DAILY 12/25/16 [History] Magnesium Hydroxide [Milk of Magnesia] 30 ml PO DAILY PRN 12/25/16 [History] Omeprazole 20 mg PO DAILY 12/25/16 [History] Promethazine [Phenergan] 12.5 mg RC Q6HR PRN 12/25/16 [History] Ranitidine HCl [Acid Vocational Psychologist] 150 mg PO DAILY 12/25/16 [History] Sennosides/Docusate Sodium [Senna-Docusate Sodium Tablet] 1 tab PO BID 12/25/16 [History] Spironolactone [Aldactone] 100 mg PO DAILY 12/25/16 [History] Tizanidine HCl [Zanaflex] 4 mg PO QAM 12/25/16 [History] Tizanidine HCl [Zanaflex] 12 mg PO HS 12/25/16 [History] Albuterol Neb [Proventil Neb] 2.5 mg IH Q4H PRN #0 inhsol 12/28/16 [Rx] Amoxicillin/Clavulanate [Augmentin] 500 mg PO TIDWM 7 Days 12/28/16 [Rx] FentaNYL PATCH [Duragesic] 25 mcg TD Q48H #10 patch.td72 12/28/16 [Rx] Fluconazole [Diflucan] 200 mg PO DAILY 20 Days 12/28/16 [Rx] GuaiFENesin/Dextromethorphan [Robitussin/Dm] 5 ml PO Q4HR PRN #200 udc 12/28/16 [Rx] Ipratropium/Albuterol Neb [Duoneb] 3 ml IH [id number] 7 Days 12/28/16 [Rx] Levofloxacin 750 mg PO DAILY 10 Days 12/28/16 [Rx] PredniSONE 40 mg PO DAILY 7 Days 12/28/16 [Rx] Saccharomyces Boulardii [Probiotic] 250 mg PO BID 30 Days 12/28/16 [Rx] Allergies/Adverse Reactions: Allergies codeine Allergy (Verified 11/09/16 13:24) Itching Oxycodone [From Percocet] Allergy (Verified 12/25/16 04:33) Hives sertraline [From Zoloft] Allergy (Verified 11/09/16 13:24) Itching - Respiratory Orders Oxygen / L per min Smoking Cessation: Smoking cessation has been advised. For more information, call the [place] Tobacco Quit Line at 5-325-INTU-NOW. - Advance Directives Living Will: Yes Power of Bus Cleaner: Yes Code Status: Full Code - History and Physical History/Physical reviewed & approved w/add comments: See H&P and discharge summary of index admission - Mobility Orders Ambulate - Rehabiliation Orders Rehab Potential: Good Rehab Orders: Evaluation for Physical Therapy, Evaluation for Occupational Therapy - Diet Orders Pureed, Cardiac House Supplement per Dietary: cardiac, pureed. CERTIFICATION: I certify that the transfer of the above named patient to an Extended Care Facility is necessary for the continuing treatment of the diagnosis listed. The above information is true and accurate reflection of patient's current condition. Confidential - Redisclosure prohibited without a patient's written consent.
[2016-12-28 14:48] VITALS: BP 106/65
[2016-12-28] MEDS ORDERED: predniSONE 20 MG TABLET PO ONE (15:00)
== END 2016-12-28 16:35 | DRG 871 ==
LOC: 3NENU 02:04 → EMEROO 02:04 → 3NENU 05:07
PROVIDERS: ADMIT Hospitalist; ATTEND Family Medicine